=== PATIENT | female | born 1960 | race Caucasian/White ===

== ENCOUNTER 2016-08-09 15:25 | Inpatient (IN) | payer OTHER ==
--- NOTE | 2016-08-09 15:29 | PDOC ---
History of Present Illness - General History Source: Patient Exam Limitations: No Limitations - History of Present Illness Initial Comments: 08/09/16 15:53 The patient is a 55 year old female, with significant past medical history of COPD, who presents today complaining of chest pain, SOB, and cough since 3am this morning. The patient describes the pain as tightness that is exacerbated secondary to laying down flat or walking. She states that this chest pain does not feel similar to the chest discomfort she feels from the COPD. The patient states that she usually has a cough in the morning, however today the coughing has lingered throughout the day. Denies any recent cold. Denies fever, chills, nausea, vomiting. Denies abdominal pain. Allergies: none reported PCP: None Order Entry Administrator: Dr. Agustin Landon <Gabrielle Erickson - Last Filed: 08/09/16 21:10> <Fernanda Aleman - Last Filed: 08/09/16 21:27> - General Chief Complaint: Chest Pain Stated Complaint: sob,chest pain Time Seen by Provider: 08/09/16 15:28 Past History <Gabrielle Erickson - Last Filed: 08/09/16 21:10> - Past Medical History COPD: Yes - Psycho/Social/Smoking Cessation Hx Anxiety: No Suicidal Ideation: No Smoking Status: Yes Smoking History: Current every day smoker Years of Tobacco Use: 40 Number of Cigarettes Smoked Daily: 25 'Breaking Loose' booklet given: 07/18/13 Hx Alcohol Use: No Substance Use Type: None <Fernanda Aleman - Last Filed: 08/09/16 21:27> - Past Medical History Allergies/Adverse Reactions: Allergies Allergy/AdvReac Type Severity Reaction Status Date / Time No Known Allergies Allergy Verified 08/09/16 15:26 Home Medications: Ambulatory Orders Budesonide/Formeterol Fumarate [SYMBICORT 160/4.5mcg -] 1 inh PO BID 07/18/13 Tiotropium [place] [Spiriva] 1 inh PO DAILY 07/18/13 Aspirin Coated [Ecotrin -] 81 mg PO ONCE PRN 08/09/16 Review of Systems - Review of Systems Able to Perform ROS?: Yes Comments:: 08/09/16 15:54 GENERAL/CONSTITUTIONAL: No fever or chills. No weakness. HEAD, EYES, EARS, NOSE AND THROAT: No change in vision. No ear pain or discharge. No sore throat. CARDIOVASCULAR: Yes: chest pain, SOB. RESPIRATORY: Yes: cough. No wheezing, or hemoptysis. GASTROINTESTINAL: No nausea, vomiting, diarrhea or constipation. GENITOURINARY: No dysuria, frequency, or change in urination. MUSCULOSKELETAL: No joint or muscle swelling or pain. No neck or back pain. SKIN: No rash NEUROLOGIC: No headache, vertigo, loss of consciousness, or change in strength/ sensation. ENDOCRINE: No increased thirst. No abnormal weight change. HEMATOLOGIC/LYMPHATIC: No anemia, easy bleeding, or history of blood clots. ALLERGIC/IMMUNOLOGIC: No hives or skin allergy. <Gabrielle Erickson - Last Filed: 08/09/16 21:10> *Physical Exam - Vital Signs Last Vital Signs Temp Pulse Resp BP Pulse Ox 97.9 F 93 H 20 130/80 97 08/09/16 15:25 08/09/16 15:25 08/09/16 15:25 08/09/16 15:25 08/09/16 15:25 - Physical Exam Comments: 08/09/16 15:54 GENERAL: Awake, alert, and fully oriented, in no acute distress HEAD: No signs of trauma EYES: PERRLA, EOMI, sclera anicteric, conjunctiva clear ENT: Auricles normal inspection, hearing grossly normal, nares patent, oropharynx clear without exudates. Moist mucosa NECK: Normal ROM, supple, no lymphadenopathy, JVD, or masses LUNGS: Breath sounds equal, clear to auscultation bilaterally. No wheezes, and no crackles HEART: Regular rate and rhythm, normal S1 and S2, no murmurs, rubs or gallops ABDOMEN: Soft, nontender, normoactive bowel sounds. No guarding, no rebound. No masses EXTREMITIES: Normal range of motion, no edema. No clubbing or cyanosis. No cords, erythema, or tenderness NEUROLOGICAL: Cranial nerves II through XII grossly intact. Normal speech, normal gait SKIN: Warm, Dry, normal turgor, no rashes or lesions noted. <Gabrielle Erickson - Last Filed: 08/09/16 21:10> Procedures - Consent Consent obtained: Verbal, From Patient - Chest Tube Left Mid Axillary Line 5th ICS Indication: Pneumothorax Anesthesia: 1% Lidocaine Volume(ml): 5 Sterile Draping: Yes Sterile Technique: Yes Garcia of Air [place]: Yes Suction: Yes Tube Sutured to Skin: Yes Complications: No Post Procedure CXR: Yes <Fernanda Aleman - Last Filed: 08/09/16 21:27> Heart Score/ECG Review - ECG Impressions Comment:: EKG read 15:40- NSR 98 bpm, no acute ST/T changes <Fernanda Aleman - Last Filed: 08/09/16 21:27> ED Treatment Course - LABORATORY CBC & Chemistry Diagram: 08/09/16 15:54 08/09/16 15:54 - RADIOLOGY Radiograph Interpretation: 08/09/16 21:10 EXAM#: TYPE/EXAM: RESULT: [id number] RAD/CHEST X-RAY PORTABLE* Chest AP 1 view 08/09/2016, 16:08 Clinical information: chest pain, dyspnea A large approximately 75% left-sided pneumothorax is noted. There is no definite mediastinal displacement. Centrilobular emphysema and bilateral apical subpleural bullae identified on a chest CT exam of is fully difficult to appreciate on radiography. The heart, cydney and mediastinum demonstrate no obvious abnormality. Impression: Large left-sided pneumothorax. Centrilobular emphysema. Reported By: Wes Dougherty MD 08/09/162035 EXAM#: TYPE/EXAM: RESULT: [id number] RAD/CHEST X-RAY PORTABLE* Chest AP 1 view 08/09/2016, 18:01 Clinical information: status post chest tube insertion There has been interval insertion of a left-sided chest tube. A very large ipsilateral pneumothorax persists without obvious interval change. No definite mediastinal displacement. Centrilobular emphysema. Bilateral apical subpleural bullae identified on chest CT are difficult to appreciate on radiography. The heart, cydney and mediastinum demonstrate no obvious abnormality. Impression: Persistent very large left-sided pneumothorax. Reported By: Wes Dougherty MD 08/09/162043 EXAM#: TYPE/EXAM: RESULT: [id number] RAD/CHEST PA LAT Chest 2 views 08/09/2016, 18:23 Clinical information: chest tube placement In comparison to the previous exam there has been minimal to mild resolution of a very large left- sided pneumothorax. A left-sided chest tube is again seen in place. No pleural effusion. Centrilobular emphysema. Right apical subpleural bullae. The heart, cydney and mediastinum demonstrate no obvious abnormality. Impression: No definite interval change is identified. Very large left-sided pneumothorax. Left chest tube in place. Reported By: Wes Dougherty MD 08/09/162046 <Gabrielle Erickson - Last Filed: 08/09/16 21:10> - LABORATORY CBC & Chemistry Diagram: 08/09/16 15:54 08/09/16 15:54 <Fernanda Aleman - Last Filed: 08/09/16 21:27> Medical Decision Making - Medical Decision Making 08/09/16 18:30 Patient accepted to hospitalist service. Pigtail is in place. Initial chest x- rays were taken with stopcock in off position. It was switched to the on position, +bubbling in the pleuravac. Patient currently comfortable, denies pain. 08/09/16 19:01 Pt complaining of pain. Will give fentanyl 50mcg IV. <Fernanda Aleman - Last Filed: 08/09/16 21:27> *DC/Admit/Observation/Transfer - Attestations Scribe Attestion: 08/09/16 15:54 Documentation prepared by FRANKLYN Torrez, acting as medical director/head team physician for Fernanda Aleman MD. <Gabrielle Erickson - Last Filed: 08/09/16 21:10> - Discharge Dispostion Admit: Yes <Fernanda Aleman - Last Filed: 08/09/16 21:27> Diagnosis at time of Disposition: Pneumothorax Qualifiers: Pneumothorax type: spontaneous, primary Qualified Code(s): J93.11 - Primary spontaneous pneumothorax - Discharge Dispostion Condition at time of disposition: Stable
[2016-08-09 15:38] VITALS: BMI 20.9
[2016-08-09] MEDS ORDERED: IBUPROFEN 600 MG TABLET (FP) PO ONE ×2 (15:49→15:55)
[2016-08-09 16:32] LABS: ALBUMIN 3.9 g/dl (3.5-5.0); ALK PHOS 67 U/L (32-92); ANION GAP 7 (8-16); BILIRUBIN,TOTAL 0.3 mg/dl (0.2-1.0); CALCIUM 9.3 mg/dl (8.4-10.2); CO2 27 mmol/L (22-28); CREATININE 0.8 mg/dl (0.6-1.3); GLUCOSE,RANDOM 104 mg/dl (74-106); SGOT/AST 27 U/L (10-42); SGPT/ALT 19 U/L (10-40)
[2016-08-09 16:33] LABS: CPK(DFH) 143 IU/L (26-140)
[2016-08-09 16:43] LABS: BASOPHIL 0.6 % (0-2.0); EOSINOPHIL 1.4 % (0-4.5); MCH 29.4 pg (25.7-33.7); MCHC 33.3 g/dl (32.0-36.0); MEAN CELL VOLUME 88.2 fl (80-96); MEAN PLT VOLUME 8.1 fl (7.5-11.1); NEUTROPHILS 68.8 % (42.8-82.8); PLATELET COUNT 223 K/MM3 (134-434); WHITE BLOOD COUNT 7.3 K/mm3 (4.0-10.0)
[2016-08-09 16:54] LABS: INR 1.04 (0.82-1.09); PROTHROMBIN TIME (PATIENT) 11.6 SEC (10.2-13.0)
[2016-08-09 17:22] LABS: TROPONIN I (DFP) < 0.03 ng/ml (0.03-0.50)
[2016-08-09 17:24] LABS: CK MB 1.9 ng/ml (0.3-4.0)
[2016-08-09] MEDS ORDERED: morphine CARPU-JECT 2 MG/1 ML DISP.SYRIN IVPUSH ONE (21:01)
[2016-08-09] MEDS ORDERED: morphine CARPU-JECT 10 MG/1 ML DISP.SYRIN ONE (21:09)
--- NOTE | 2016-08-09 23:02 | PN ---
<Rom Herring - Last Filed: 08/09/16 23:02> Teaching Attending Note Name of Resident: Mel La ATTENDING PHYSICIAN STATEMENT I saw and evaluated the patient. I reviewed the resident's note and discussed the case with the resident. I agree with the resident's findings and plan as documented. SUBJECTIVE: OBJECTIVE: ASSESSMENT AND PLAN: <Karla Merrill - Last Filed: 08/09/16 23:58> Teaching Attending Note ATTENDING PHYSICIAN STATEMENT I saw and evaluated the patient. I reviewed the resident's note and discussed the case with the resident. I agree with the resident's findings and plan as documented. SUBJECTIVE: Patient is a 55 yo F with a PMHx of COPD who presents with left-sided chest pain and SOB since 3 am. The pain began spontaneously and did not improve with aspirin. Patient reports the pain radiates toward her left upper shoulder and back and has progressively gotten worse all day. She also notes her pain is exacerbated with movement. Patient states her COPD is well controlled. Patient has not received her flu shot this year. Allergies: NKDA Denies fever, chills, nausea, vomiting, diarrhea and abdominal pain. Surgical Hx: None Social Hx: Smoker: Chronic 6 cigarettes per day (former 2ppd), no drug use OBJECTIVE: Last Vital Signs Temp Pulse Resp BP Pulse Ox 97.7 F 76 16 120/77 100 08/09/16 20:30 08/09/16 20:30 08/09/16 20:30 08/09/16 20:30 08/09/16 20:30 GENERAL: Awake, alert, and fully oriented, in no acute distress. HEENT: Atraumatic. Moist mucosa. Normocephalic. No sinus tenderness. No LAD. NECK: No JVD. No thyroid masses. Supple. LUNGS: Left-sided pigtail catheter in left clavicular line. Decreased breath sounds in left lung base. No wheezing, rhonchi or rales. HEART: Regular rate and rhythm, normal S1 and S2, no murmurs, rubs or gallops, peripheral pulses normal and equal bilaterally. ABDOMEN: Soft, nontender, normoactive bowel sounds. No guarding, no rebound. No Masses. MUSCULOSKELETAL: No joint tenderness or erythema. No muscle tenderness. Normal muscle bulk and tone. EXTREMITIES: Normal inspection, No edema. No clubbing or cyanosis. Moves all extremities. NEUROLOGICAL: Normal speech, normal gait, no focal sensorimotor deficits. SKIN: Warm, dry, normal turgor, no rashes or lesions noted. CBCD WBC 7.3 K/mm3 (4.0-10.0) 08/09/16 15:54 RBC 4.40 M/mm3 (3.60-5.2) 08/09/16 15:54 Hgb 12.9 GM/dl (10.7-15.3) 08/09/16 15:54 Hct 38.9 % (32.4-45.2) 08/09/16 15:54 MCV 88.2 fl (80-96) 08/09/16 15:54 MCHC 33.3 g/dl (32.0-36.0) 08/09/16 15:54 RDW 13.0 % (11.6-15.6) 08/09/16 15:54 Plt Count 223 K/MM3 (134-434) 08/09/16 15:54 MPV 8.1 fl (7.5-11.1) 08/09/16 15:54 CMP Sodium 138 mmol/L (136-145) 08/09/16 15:54 Potassium 4.0 mmol/L (3.5-5.1) 08/09/16 15:54 Chloride 104 mmol/L (98-107) 08/09/16 15:54 Carbon Dioxide 27 mmol/L (22-28) 08/09/16 15:54 Anion Gap 7 (8-16) L 08/09/16 15:54 BUN 13 mg/dl (7-18) D 08/09/16 15:54 Creatinine 0.8 mg/dl (0.6-1.3) 08/09/16 15:54 Creat Clearance w eGFR > 60 (>60) 08/09/16 15:54 Calcium 9.3 mg/dl (8.4-10.2) 08/09/16 15:54 Total Bilirubin 0.3 mg/dl (0.2-1.0) D 08/09/16 15:54 AST 27 U/L (10-42) D 08/09/16 15:54 ALT 19 U/L (10-40) 08/09/16 15:54 Alkaline Phosphatase 67 U/L (32-92) 08/09/16 15:54 Total Protein 7.0 g/dl (6.4-8.3) 08/09/16 15:54 Albumin 3.9 g/dl (3.5-5.0) 08/09/16 15:54 CXR 2 Impression: Persistent, very large. Left-sided pneumothorax. CXR 3 Impression: No definite interval change is identified. Very large, left-sided pneumothorax. Left-sided chest tube placed. ASSESSMENT AND PLAN: Patient is a 55 yo F with a PMHx of COPD who presents with secondary spontaneous pneumothorax likely secondary to COPD and chronic smoking with 75% pneumothorax on left side as per CXR report. 1.) Secondary Spontaneous Pneumothorax -Clinically stable s/p catheter -Continue left pigtail with suction -Serial CXRs -Monitor vitals Q 4 hours -2 mg Morphine IV push 6 hours PRN if pain and/or dyspnea -Pulmonology follow-up in AM Dr. Landon DVT ppx -Low risk -SCDs Diet -Regular - Admit to [facility] Documentation prepared by Karla Merrill, acting as medical administrative specialist for Rom Herring M.D.
[2016-08-09] MEDS ORDERED: morphine CARPU-JECT 2 MG/1 ML DISP.SYRIN IVPUSH PRN (23:41)
[2016-08-09] MEDS ORDERED: ASPIRIN COATED 81 MG TABLET.EC PO PRN (23:43)
[2016-08-09] MEDS ORDERED: HEPARIN NA (PORCINE) 5,000 UNITS/ML 1ML VIAL SQ SCH (23:45)
--- NOTE | 2016-08-09 23:45 | HP ---
CHIEF COMPLAINT: Chest pain and SOB PCP: Dr. Landon. HISTORY OF PRESENT ILLNESS: 55 year old female presented to the ED (at [facility]) with the chief complaints of chest pain and SOB x 1day. A/c to the patient, she woke up at 3am with severe left sided chest pain, initially was 4/10 in intensity, sharp in quality, radiating towards her left shoulder and back, associated with shortness of breath. Chest pain and SOB progressively got worse to 10/10 in intensity, was persistent, increased on deep inspiration. This has never happened before. Denies cough, palpitation, abdominal pain, nausea or vomiting, headache, fever, chills, rigors or sweating. ER course was notable for: (1) NO leukocytosis, afebrile (2) CXR: Pneumothorax (3) Left sided chest tube placement Recent Travel: None PAST MEDICAL HISTORY: COPD PAST SURGICAL HISTORY: None Social History: Smoking: Current smoker, smokes 6cigs/day, e-cigs, used to smoke 2 packs/day Alcohol: Never took alcohol Drugs: No illicit drugs Family History: No h/o pneumothorax Allergies No Known Allergies Allergy (Verified 08/09/16 15:26) HOME MEDICATIONS: Home Medications Medication Instructions Recorded Budesonide/Formeterol Fumarate 1 inh PO BID 07/18/13 [SYMBICORT 160/4.5mcg -] Tiotropium [place] [Spiriva] 1 inh PO DAILY 07/18/13 Aspirin Coated [Ecotrin -] 81 mg PO ONCE PRN 08/09/16 REVIEW OF SYSTEMS CONSTITUTIONAL: Absent: fever, chills, diaphoresis, generalized weakness, malaise, loss of appetite, weight change HEENT: Absent: rhinorrhea, nasal congestion, throat pain, throat swelling, difficulty swallowing, mouth swelling, ear pain, eye pain, visual changes CARDIOVASCULAR: Present: chest pain Absent: syncope, palpitations, irregular heart rate, lightheadedness, peripheral edema RESPIRATORY: Present: shortness of breath Absent: cough, dyspnea with exertion, orthopnea, wheezing, stridor, hemoptysis GASTROINTESTINAL: Absent: abdominal pain, abdominal distension, nausea, vomiting, diarrhea, constipation, melena, hematochezia GENITOURINARY: Absent: dysuria, frequency, urgency, hesitancy, hematuria, flank pain, genital pain MUSCULOSKELETAL: Absent: myalgia, arthralgia, joint swelling, back pain, neck pain SKIN: Absent: rash, itching, pallor HEMATOLOGIC/IMMUNOLOGIC: Absent: easy bleeding, easy bruising, lymphadenopathy, frequent infections ENDOCRINE: Absent: unexplained weight gain, unexplained weight loss, heat intolerance, cold intolerance NEUROLOGIC: Absent: headache, focal weakness or paresthesias, dizziness, unsteady gait, seizure, mental status changes, bladder or bowel incontinence PSYCHIATRIC: Absent: anxiety, depression, suicidal or homicidal ideation, hallucinations. PHYSICAL EXAMINATION Vital Signs - 24 hr 08/09/16 08/09/16 08/09/16 15:25 16:00 17:28 Temperature 97.9 F Pulse Rate 93 H 76 Pulse Rate [ 77 Left] Respiratory 20 18 Rate Blood Pressure 130/80 Blood Pressure [Left Arm] Blood Pressure 127/81 [Right Arm] O2 Sat by Pulse 97 100 100 Oximetry (%) 08/09/16 08/09/16 08/09/16 18:08 19:18 20:30 Temperature 97.7 F Pulse Rate Pulse Rate [ 79 69 76 Left] Respiratory 20 18 16 Rate Blood Pressure Blood Pressure 120/77 [Left Arm] Blood Pressure 134/94 124/75 [Right Arm] O2 Sat by Pulse 100 100 100 Oximetry (%) GENERAL: Thinly built female sitting in bed uncomfortable, Awake, alert, and fully oriented, in no acute distress. HEAD: Normal with no signs of trauma. EYES: EOM intact, no pallor or icterus. EARS, NOSE, THROAT: Ears normal. Moist mucous membranes. NECK: Supple. LUNGS: Chest tube placed in 5th ICS @ axillary line, Breath sounds decreased on the left side,No wheezes, and no crackles. No accessory muscle use. HEART: Regular rate and rhythm, normal S1 and S2 without murmur, rub or gallop. ABDOMEN: Soft, nontender, not distended, normoactive bowel sounds, no guarding, no rebound, no masses. No hepatomegaly or splenomegaly. MUSCULOSKELETAL: Normal range of motion at all joints. No bony deformities or tenderness. No CVA tenderness. UPPER EXTREMITIES: 2+ pulses, warm, well-perfused. No cyanosis. No clubbing. Cap refill <2 seconds. No peripheral edema. LOWER EXTREMITIES: 2+ pulses, warm, well-perfused. No calf tenderness. No peripheral edema. NEUROLOGICAL: Cranial nerves II-XII intact. Normal speech. Gait not observed. PSYCHIATRIC: Cooperative. Good eye contact. Appropriate mood and affect. SKIN: Warm, dry, normal turgor, no rashes or lesions noted. Laboratory Results - last 24 hr 08/09/16 08/09/16 08/09/16 15:54 15:54 15:54 WBC 7.3 RBC 4.40 Hgb 12.9 Hct 38.9 MCV 88.2 MCHC 33.3 RDW 13.0 Plt Count 223 MPV 8.1 Neutrophils % 68.8 Lymphocytes % 22.2 D Monocytes % 7.0 Eosinophils % 1.4 Basophils % 0.6 INR Sodium 138 Potassium 4.0 Chloride 104 Carbon Dioxide 27 Anion Gap 7 L BUN 13 D Creatinine 0.8 Creat Clearance w eGFR > 60 Random Glucose 104 Calcium 9.3 Total Bilirubin 0.3 D AST 27 D ALT 19 Alkaline Phosphatase 67 Creatine Kinase 143 H CK-MB (CK-2) 1.9 Troponin I < 0.03 L Total Protein 7.0 Albumin 3.9 08/09/16 16:34 WBC RBC Hgb Hct MCV MCHC RDW Plt Count MPV Neutrophils % Lymphocytes % Monocytes % Eosinophils % Basophils % INR 1.04 Sodium Potassium Chloride Carbon Dioxide Anion Gap BUN Creatinine Creat Clearance w eGFR Random Glucose Calcium Total Bilirubin AST ALT Alkaline Phosphatase Creatine Kinase CK-MB (CK-2) Troponin I Total Protein Albumin CXR 2 Impression: Persistent, very large. Left-sided pneumothorax. CXR 3 s/p chest tube Impression: No definite interval change is identified. Very large, left-sided pneumothorax. Left-sided chest tube placed. ASSESSMENT/PLAN: 55 year old female presented to the ED (at [facility]) with PMHx of COPD with the chief complaints of chest pain and SOB x 1day. # Spontaneous secondary Pneumothorax Patient presented with severe left sided chest pain with SOB since morning. On arrival, patient was afebrile, hemodynamically stable with normal sat. CXR showed left sided pneumothorax Admitted now in Med-Surg @ [facility] Patients chest pain seems to persist. Ordered IV Morphine 2mg Q6H PRN Incentive Spirometry every hr as tolerated Chest tube placed in suction CXR ordered for 6am Monitor new symptoms # COPD-Not in exacerbation Never been hospitalized for exacerbation Continue Spiriva and Symbicort Smoking cessation Oxygen PRN # FEN Not on IV fluids Electrolytes to be repeated Regular diet # Prophylaxis For DVT- On SCD's For GI- Not indicated # Code Status- Full Code # Dispo: Admitted in Med-surg. Illness, Investigation and plan of care explained to the patient. She verbalized understanding. Case seen and discussed with Dr. Herring. Visit type - Emergency Visit Emergency Visit: Yes ED Registration Date: 08/09/16 Care time: The patient presented to the Emergency Department on the above date and was hospitalized for further evaluation of their emergent condition. - New Patient This patient is new to me today: Yes Date on this admission: 08/09/16 - Critical Care Critical Care patient: No
[2016-08-10] MEDS: morphine CARPU-JECT 2 MG/1 ML DISP.SYRIN IVPUSH PRN ×2 (00:53→06:08)
[2016-08-10] MEDS: BUDESONIDE/FORMETEROL FUMARATE 160/4.5 mcg INHALER IH SCH ×3 (00:56→20:59)
[2016-08-10 08:50] LABS: BASOPHIL 0.8 % (0-2.0); EOSINOPHIL 2.7 % (0-4.5); MCHC 33.5 g/dl (32.0-36.0); MEAN CELL VOLUME 89.6 fl (80-96); MEAN PLT VOLUME 8.4 fl (7.5-11.1); NEUTROPHILS 57.7 % (42.8-82.8); PLATELET COUNT 175 K/MM3 (134-434); RDW 13.3 % (11.6-15.6); WHITE BLOOD COUNT 4.9 K/mm3 (4.0-10.0)
[2016-08-10 09:25] LABS: ALBUMIN 3.2 g/dl (3.4-5.0); ANION GAP 8 (8-16); CALCIUM 8.4 mg/dL (8.5-10.1); CO2 28 mmol/L (21-32); GLUCOSE,RANDOM 75 mg/dL (74-106); MAGNESIUM 2.2 mg/dL (1.8-2.4); PHOSPHOROUS 4.2 mg/dL (2.5-4.9); SGOT/AST 20 U/L (15-37)
[2016-08-10 09:27] LABS: ALK PHOS 70 U/L (45-117); BILIRUBIN,TOTAL 0.3 mg/dL (0.2-1.0); CREATININE 0.7 mg/dL (0.55-1.02); SGPT/ALT 19 U/L (12-78); TOT PROT 6.4 g/dl (6.4-8.2)
[2016-08-10] MEDS ORDERED: PT OWN MED DRAWER 7, Y5N ONE (10:37)
[2016-08-10] MEDS: ACLIDINIUM BROMIDE 400 MCG/INH AERO.POWD IH SCH ×2 (10:39→20:59)
--- NOTE | 2016-08-10 10:40 | EKG ---
Test Reason : Blood Pressure : / mmHG Vent. Rate : 098 BPM Atrial Rate : 098 BPM P-R Int : 136 ms QRS Dur : 076 ms QT Int : 352 ms P-R-T Axes : 084 084 020 degrees QTc Int : 449 ms SINUS RHYTHM POSSIBLE LEFT ATRIAL ENLARGEMENT NO PREVIOUS ECGS AVAILABLE Confirmed by KAMILLE BELTRAN MD ([id number]) on 08/10/2016 10:40:41 AM Referred By: MD RUDOLPH Confirmed By:KAMILLE BELTRAN MD
[2016-08-10] MEDS ORDERED: morphine CARPU-JECT 4 MG/1 ML DISP.SYRIN IVPUSH PRN (10:43)
--- NOTE | 2016-08-10 10:59 | PN ---
Teaching Attending Note Name of Resident: Adriano Cooper ATTENDING PHYSICIAN STATEMENT I saw and evaluated the patient. I reviewed the resident's note and discussed the case with the resident. I agree with the resident's findings and plan as documented. SUBJECTIVE:states she has pain at tube insertion site that is worse on movement. states pain is not alleviated with pain medication. never had episode in the past. denies CP, SOB,cough, fever, chills, N/V/C/D. states she has been smoking e-cigarettes more lately but has not cut down on smoking. OBJECTIVE: Last Vital Signs Temp Pulse Resp BP Pulse Ox 98.4 F 60 20 109/70 98 08/10/16 10:00 08/10/16 10:00 08/10/16 10:00 08/10/16 10:00 08/10/16 05:00 General NAD CV S1 S2 RRR no murmur/rub/gallop Lungs CTA B/L no wheezing/rales/rhonchi L posterior chest tube in place, minimal dried blood surrounding insertion site, no erythema. ASSESSMENT AND PLAN: 55yo F wtih PMH COPD presented to the ER and was admitted for further evaluation of their emergent condition 1. Secondary PTX- likely due to smoking hx vs COPD. unaware if this is more pronounced with e-cigarettes. daily CXR. awaiting todays image. monitor oxygen levels. increase morphine to 4mg Q4H for improved pain control. pulmonary on board 2. Continuous nicotine depedence- offer nicotine patch 3. COPD- cont inhalers 4. DVT ppx- EAM
--- NOTE | 2016-08-10 11:12 | CON.PULM ---
Consult Consult Specialty:: PULMONARY Referred by:: YARY Reason for Consultation:: PTX - History of Present Illness Chief Complaint: SOB/CP History of Present Illness: The patient is a 55 year old female, with significant past medical history of COPD, who presented complaining of chest pain, SOB, and cough since am of admission. The patient describes the pain as tightness that is exacerbated secondary to lying flat or walking. She states that this chest pain does not feel similar to the chest discomfort she feels from the COPD. The patient states that she usually has a cough in the morning, however today the coughing has lingered throughout the day.Denies any recent cold. Denies fever, chills, nausea, vomiting. Denies abdominal pain. No h/o previous PTX. She is an active smoker. 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 No: O2 Dependent Gastrointestinal: No: Ascites Hepatobiliary: No: Cirrhosis Renal/: No: Renal Failure Reproductive: Yes: Postmenopausal Heme/Onc: No: Anemia Infectious Disease: No: HIV Psych: No: Addictions Musculoskeletal: No: Bursitis Rheumatology: No: Fibromyalgia ENT: No: Allergic Rhinitis Endocrine: No: Diabetes Mellitus - Alcohol/Substance Use Hx Alcohol Use: No - Smoking History Smoking history: Current every day smoker Have you smoked in the past 12 months: Yes Aproximately how many cigarettes per day: 25 - Social History Place of : [facility] History of Recent Travel: No Home Medications - Allergies Allergies/Adverse Reactions: Allergies Allergy/AdvReac Type Severity Reaction Status Date / Time No Known Allergies Allergy Verified 08/09/16 15:26 - Home Medications Home Medications: Ambulatory Orders Budesonide/Formeterol Fumarate [SYMBICORT 160/4.5mcg -] 1 inh PO BID 07/18/13 Tiotropium [place] [Spiriva] 1 inh PO DAILY 07/18/13 Aspirin Coated [Ecotrin -] 81 mg PO ONCE PRN 08/09/16 Family Disease History - Family Disease History Family History: Unremarkable Review of Systems - Review of Systems Constitutional: denies: Fever Eyes: denies: Blind Spots HENT: denies: Difficult Swallowing Neck: denies: Decreased ROM Cardiovascular: reports: Chest Pain Respiratory: reports: Cough, Exercise Intolerance, SOB on Exertion. denies: Hemoptysis, Wheezing Gastrointestinal: denies: Abdominal Pain Genitourinary: denies: Burning Breasts: reports: No Symptoms Reported Musculoskeletal: reports: No Symptoms Neurological: reports: No Symptoms Endocrine: reports: No Symptoms Physical Exam Vital Sings: Vital Signs Temperature 98.4 F 08/10/16 10:00 Pulse Rate 60 08/10/16 10:00 Respiratory Rate 20 08/10/16 10:00 Blood Pressure 109/70 08/10/16 10:00 O2 Sat by Pulse Oximetry (%) 98 08/10/16 05:00 Constitutional: Yes: Calm Eyes: Yes: EOM Intact HENT: Yes: Normocephalic Neck: Yes: Trachea Midline Cardiovascular: Yes: Regular Rate and Rhythm Respiratory: Yes: Other (LEFT PIG TAIL CATHETER IN PLACE/BREATH SOUNDS ARE PRESENT ON LEFT) Gastrointestinal: Yes: WNL Extremities: Yes: WNL Edema: No Labs: CBC, BMP 08/10/16 06:30 08/10/16 06:30 REST REVIEWED Imaging - Results Chest X-ray: Image Reviewed Problem List - Problems (1) Pneumothorax Code(s): J93.9 - PNEUMOTHORAX, UNSPECIFIED Qualifiers: Pneumothorax type: spontaneous, primary Qualified Code(s): J93.11 - Primary spontaneous pneumothorax (2) COPD - Chronic obstructive lung disease Code(s): J44.9 - CHRONIC OBSTRUCTIVE PULMONARY DISEASE, UNSPECIFIED (3) Chest pain Code(s): R07.9 - CHEST PAIN, UNSPECIFIED Assessment/Plan SPONTANEOUS PNEUMOTHORAX IN AN ACTIVE SMOKER WITH COPD PIG TAIL CATHETER PLACED WITHOUT RESOLUTION OF PTX INITIALLY AM CXR IS PENDING ,I SUSPECT THE PTX IS IMPROVED BASED ON CLINICAL EXAM. WILL ASK T-SURG TO CONSULT CONTINUE O2/BRONCHODILATORS FOR NOW WILL FOLLOW Tammy JONES MD
[2016-08-10] MEDS: IBUPROFEN 400 MG TABLET (FP) PO PRN (11:21)
--- NOTE | 2016-08-10 13:26 | PN ---
Physical Exam: SUBJECTIVE: Patient seen and examined at bedside. Pt feels better today. No SOB , CP, palpitations, abd pain. She has pain at chest tube insertion site and would like some ibuprofen. Denies any trauma to chest, falls, bumps, or any inciting factors. Has recently been smoking more. OBJECTIVE: Vital Signs Temperature 98.4 F 08/10/16 10:00 Pulse Rate 60 08/10/16 10:00 Respiratory Rate 20 08/10/16 10:00 Blood Pressure 109/70 08/10/16 10:00 O2 Sat by Pulse Oximetry (%) 98 08/10/16 05:00 GENERAL: The patient is awake, alert, and fully oriented, in no acute distress. HEAD: Normal with no signs of trauma. EYES: PERRL, extraocular movements intact, sclera anicteric, conjunctiva clear. No ptosis. ENT: Ears normal, nares patent, oropharynx clear without exudates, moist mucous membranes. NECK: Trachea midline, full range of motion, supple. LUNGS: Decreased breath sounds L upper lung field. No crackles. L sided chest tube in place, minimal drainage. HEART: Regular rate and rhythm, S1, S2 without murmur, rub or gallop. ABDOMEN: Soft, nontender, nondistended, normoactive bowel sounds, no guarding, no rebound, no hepatosplenomegaly, no masses. EXTREMITIES: 2+ pulses, warm, well-perfused, no edema. NEUROLOGICAL: Normal speech, gait not observed. PSYCH: Normal mood, normal affect. SKIN: Warm, dry, normal turgor, no rashes or lesions noted Laboratory Results - last 24 hr 08/10/16 08/10/16 06:30 06:30 WBC 4.9 RBC 3.86 Hgb 11.6 Hct 34.6 MCV 89.6 MCHC 33.5 RDW 13.3 Plt Count 175 MPV 8.4 Neutrophils % 57.7 Lymphocytes % 30.2 Monocytes % 8.6 Eosinophils % 2.7 Basophils % 0.8 Sodium 141 Potassium 4.2 Chloride 105 Carbon Dioxide 28 Anion Gap 8 BUN 10 Creatinine 0.7 Creat Clearance w eGFR > 60 Random Glucose 75 Calcium 8.4 L Phosphorus 4.2 Magnesium 2.2 Total Bilirubin 0.3 AST 20 ALT 19 Alkaline Phosphatase 70 Total Protein 6.4 Albumin 3.2 L Active Medications Generic Name Dose Route Start Last Admin Trade Name Freq PRN Reason Stop Dose Admin Aclidinium [place] 1 puff 08/10/16 10:00 08/10/16 10:39 Tudorza - IH 1 puff BID SOFIA Administration Budesonide/Formoterol Fumarate 1 puff 08/09/16 23:45 08/10/16 10:40 Symbicort 160/4.5mcg - IH 1 puff BID SOFIA Administration Ibuprofen 400 mg 08/10/16 10:42 08/10/16 11:21 Motrin - PO 400 mg Q6H PRN Administration PAIN Morphine Sulfate 4 mg 08/10/16 10:43 Morphine Injection - IVPUSH Q4H PRN FOR CHEST PAIN ASSESSMENT/PLAN: 55 y/o F w/PMH of COPD, current smoker presented to [facility] w/o c/o sudden chest pain and SOB since the night before coming to ER. Found to have L sided pneumothorax and had chest tube placed and now admitted for pneumothorax. -Spontaneous secondary pneumothorax most likely due to smoking history, copd/ emphysema. -L sided chest tube in place with suction -minimal drainage -pulm on board -Dr. Bernard - thoracic surgery consulted -CXR this AM shows adequate expansion of left lung -CXR in AM -pt informed to alert staff if she has any worsening SOB, chest pain, difficulty breathing -pain control with morphine 4mg iv q4h prn; ibuprofen 400 mg po q6h prn -c/w incentive spirometry use -COPD -c/w spiriva, symbicort -smoking cessation -FEN -not on fluids -monitor lytes -regular diet -DVT ppx -scds -Dispo: -monitor on floors Problem List - Problems (1) Pneumothorax Code(s): J93.9 - PNEUMOTHORAX, UNSPECIFIED Qualifiers: Pneumothorax type: spontaneous, primary Qualified Code(s): J93.11 - Primary spontaneous pneumothorax (2) COPD - Chronic obstructive lung disease Code(s): J44.9 - CHRONIC OBSTRUCTIVE PULMONARY DISEASE, UNSPECIFIED (3) Chest pain Code(s): R07.9 - CHEST PAIN, UNSPECIFIED Visit type - Emergency Visit Emergency Visit: Yes ED Registration Date: 08/09/16 Care time: The patient presented to the Emergency Department on the above date and was hospitalized for further evaluation of their emergent condition. - New Patient This patient is new to me today: Yes Date on this admission: 08/10/16 - Critical Care Critical Care patient: No
--- NOTE | 2016-08-10 17:40 | CONSULT ---
Consult - text type - Consultation Consultation Note: Thoracic Surgery Consultation (Brief--Full consult to follow). CXR's reviewed showing a well-expanded lung ~24 hours after chest tube placement. In AM, will assess chest tube for air-leak and possibly change to water seal.
[2016-08-11] MEDS: IBUPROFEN 400 MG TABLET (FP) PO PRN ×2 (01:33→10:35)
--- NOTE | 2016-08-11 08:17 | MSN ---
Progress Note (SOAP) - Subjective Chief Complaint: CP and SOB History of Present Illness: NHI overnight. Pt states she feels well and breathing is improved compared to yesterday. Pt does c/o headache, which she thinks is secondary to nicotine withdrawal. Pt requests to have nicotine patch. Denies SOB/CP/palpitations/ abdominal pain/fevers/chills. Received Motrin @0100 this morning and Morphine 4mg IV injection @2000 last night. Pt states there is no pain at the operative site and will not request Morphine anymore. - Current Medications Current Medications: Active Medications Aclidinium [place] (Tudorza -) 1 puff IH BID [facility] Last Admin: 08/10/16 20:59 Dose: 1 puff Budesonide/Formoterol Fumarate (Symbicort 160/4.5mcg -) 1 puff IH BID [facility] Last Admin: 08/10/16 20:59 Dose: 1 puff Ibuprofen (Motrin -) 400 mg PO Q6H PRN PRN Reason: PAIN Last Admin: 08/11/16 01:33 Dose: 400 mg Morphine Sulfate (Morphine Injection -) 4 mg IVPUSH Q4H PRN PRN Reason: FOR CHEST PAIN Last Admin: 08/10/16 20:58 Dose: 4 mg Nicotine (Nicoderm Patch -) 14 mg TD DAILY [facility] - Objective Vital Signs: Vital Signs Temperature 97.5 F L 08/11/16 06:43 Pulse Rate 60 08/11/16 06:43 Respiratory Rate 20 08/11/16 06:43 Blood Pressure 98/64 08/11/16 06:43 O2 Sat by Pulse Oximetry (%) 97 08/10/16 09:00 Constitutional: Yes: No Distress, Calm, Thin Eyes: Yes: WNL, Conjunctiva Clear, EOM Intact, PERRL HENT: Yes: WNL, Atraumatic, Normocephalic. No: Epistaxis, Hoarseness, Nasal Congestion, Rhinnorhea Neck: Yes: WNL, Trachea Midline Cardiovascular: Yes: WNL, Regular Rate and Rhythm, S1, S2. No: JVD Respiratory: Yes: Regular, CTA Bilaterally, Diminished (Diminished breath sounds at L apex have improved since yesterday.), On Nasal O2 (2 L NC). No: Accessory Muscle Use, Bradypnea, SOB, Tachypnea Gastrointestinal: Yes: WNL, Normal Bowel Sounds, Soft Musculoskeletal: Yes: WNL Extremities: Yes: WNL Edema: No Wound/Incision: Yes: Clean/Dry, Dressing Dry and Intact. No: Draining, Reddened , Bleeding Neurological: Yes: WNL, Alert, Oriented, Cran Nerves II-XII Intact ...Motor Strength: Yes: WNL Psychiatric: Yes: WNL, Oriented Labs Lab Results: CBC, BMP 08/10/16 06:30 08/10/16 06:30 Imaging - Results Chest X-ray: Report Reviewed, Image Reviewed (08/11/16 CXR shows persistent small L apical PTX. Possible R small apical PTX or bullous changes) Cat Scan: Report Reviewed, Image Reviewed (CT scan of the chest revealed R apical bullae, L PTX of ~5%, L sided basilar atelectasis, no lung nodules identified) Problem List - Problems (1) COPD - Chronic obstructive lung disease Code(s): J44.9 - CHRONIC OBSTRUCTIVE PULMONARY DISEASE, UNSPECIFIED (2) Pneumothorax Code(s): J93.9 - PNEUMOTHORAX, UNSPECIFIED Qualifiers: Pneumothorax type: spontaneous, primary Qualified Code(s): J93.11 - Primary spontaneous pneumothorax (3) Nicotine dependence Code(s): F17.200 - NICOTINE DEPENDENCE, UNSPECIFIED, UNCOMPLICATED Assessment/Plan 55 yo F with a PMHx of COPD presented to [place] ED on 08/09/16 c/o CP and SOB x1 day. CXR revealed L apical PTX and chest tube was placed in the ED. 1. L apical PTX -L sided chest tube in place with suction, minimal drainage with little to no increase since yesterday -clinically improving -pulmonary and thoracic surgery consult appreciated -CXR 08/11/16 revealed small persistent L apical PTX. F/U CXR in AM -CT scan 08/11/16 revealed L PTX of ~5%, L sided basilar atelectasis, R sided apical bullae, no lung nodules -plan to switch chest tube to water seal from suction -monitor clinical status once taken off suction and repeat CXR within 12-24 hrs from putting chest tube on water seal -c/w incentive spirometry 2. COPD -c/w symbicort and spiriva -school counsellor on smoking sensation 3. Headache secondary to nicotine dependence -Nicoderm patch 14mg TD daily applied 4. Pain management -Ibuprofen 400mg PO PRN. Last dose 08/11/16 @1000 -Morphine 4mg IV Push Q4H PRN. Last dose 08/10/16 @1999 5. DVT ppx -scds 6. FEN -no IVF -monitor electrolytes -regular diet 7. Dispo -monitor on floors Wes Weber, MS3
--- NOTE | 2016-08-11 08:34 | PN ---
Physical Exam: SUBJECTIVE: Patient seen and examined at bedside. Pt feels well today and denies any SOB, CP, difficulty breathing. Pain at tube insertion site is less compared to yesterday. Pt has MARKS and states its most likely from not smoking and would like a nicotine patch. Pt denies N/V/F/C, light headedness, dizziness. OBJECTIVE: Vital Signs Temperature 97.5 F L 08/11/16 06:43 Pulse Rate 60 08/11/16 06:43 Respiratory Rate 20 08/11/16 06:43 Blood Pressure 98/64 08/11/16 06:43 O2 Sat by Pulse Oximetry (%) 97 08/10/16 09:00 GENERAL: The patient is awake, alert, and fully oriented, in no acute distress. HEAD: Normal with no signs of trauma. EYES: PERRL, extraocular movements intact, sclera anicteric, conjunctiva clear. No ptosis. ENT: Ears normal, nares patent, oropharynx clear without exudates, moist mucous membranes. NECK: Trachea midline, full range of motion, supple. LUNGS: CTA B/L, equal breath sounds. Improved compared to yesterday. No crackles. L sided chest tube in place, minimal drainage. HEART: Regular rate and rhythm, S1, S2 without murmur, rub or gallop. ABDOMEN: Soft, nontender, nondistended, normoactive bowel sounds, no guarding, no rebound, no hepatosplenomegaly, no masses. EXTREMITIES: 2+ pulses, warm, well-perfused, no edema. NEUROLOGICAL: Normal speech, gait not observed. PSYCH: Normal mood, normal affect. SKIN: Warm, dry, normal turgor, no rashes or lesions noted Laboratory Results - last 24 hr 08/10/16 08/10/16 06:30 06:30 WBC 4.9 RBC 3.86 Hgb 11.6 Hct 34.6 MCV 89.6 MCHC 33.5 RDW 13.3 Plt Count 175 MPV 8.4 Neutrophils % 57.7 Lymphocytes % 30.2 Monocytes % 8.6 Eosinophils % 2.7 Basophils % 0.8 Sodium 141 Potassium 4.2 Chloride 105 Carbon Dioxide 28 Anion Gap 8 BUN 10 Creatinine 0.7 Creat Clearance w eGFR > 60 Random Glucose 75 Calcium 8.4 L Phosphorus 4.2 Magnesium 2.2 Total Bilirubin 0.3 AST 20 ALT 19 Alkaline Phosphatase 70 Total Protein 6.4 Albumin 3.2 L Imaging: CXR 08/11/16: persistent L apical pneumothorax with left base chest tube and blunting of the left angle. There is a lucency seen at the right apex which could represent a small pneumothorax though bullous changes must be considered. Active Medications Generic Name Dose Route Start Last Admin Trade Name Freq PRN Reason Stop Dose Admin Aclidinium [place] 1 puff 08/10/16 10:00 08/10/16 20:59 Tudorza - IH 1 puff BID SOFIA Administration Budesonide/Formoterol Fumarate 1 puff 08/09/16 23:45 08/10/16 20:59 Symbicort 160/4.5mcg - IH 1 puff BID SOFIA Administration Ibuprofen 400 mg 08/10/16 10:42 08/11/16 01:33 Motrin - PO 400 mg Q6H PRN Administration PAIN Morphine Sulfate 4 mg 08/10/16 10:43 08/10/16 20:58 Morphine Injection - IVPUSH 4 mg Q4H PRN Administration FOR CHEST PAIN Nicotine 14 mg 08/11/16 10:00 Nicoderm Patch - TD DAILY SOFIA ASSESSMENT/PLAN: 55 y/o F w/PMH of COPD, current smoker presented to [facility] w/o c/o sudden chest pain and SOB since the night before coming to ER. Found to have L sided pneumothorax and had chest tube placed and now admitted for pneumothorax. -Spontaneous secondary pneumothorax most likely due to smoking history, copd/ emphysema. -L sided chest tube in place with suction -minimal drainage -pulm on board -Dr. Joana Marcus t-surgery will reassess chest tube today and plan for possible wet seal. -CXR this AM shows persistent small L apical ptx. R apex possible small ptx vs bullous changes. -CT chest 08/2015 shows biapical bulla, unlikely to be R apex ptx at this time. -CXR in AM -pt informed to alert staff if she has any worsening SOB, chest pain, difficulty breathing -pain control with morphine 4mg iv q4h prn; ibuprofen 400 mg po q6h prn -c/w incentive spirometry use -COPD -c/w spiriva, symbicort -smoking cessation -Current smoker -Nicoderm patch 14 mg TD qd -Headache secondary to nicotine dependence -Nicoderm patch 14 mg TD qd -FEN -not on fluids -monitor lytes -regular diet -DVT ppx -scds -Dispo: -monitor on floors Problem List - Problems (1) Pneumothorax Code(s): J93.9 - PNEUMOTHORAX, UNSPECIFIED Qualifiers: Pneumothorax type: spontaneous, primary Qualified Code(s): J93.11 - Primary spontaneous pneumothorax (2) COPD - Chronic obstructive lung disease Code(s): J44.9 - CHRONIC OBSTRUCTIVE PULMONARY DISEASE, UNSPECIFIED (3) Chest pain Code(s): R07.9 - CHEST PAIN, UNSPECIFIED (4) Nicotine dependence Code(s): F17.200 - NICOTINE DEPENDENCE, UNSPECIFIED, UNCOMPLICATED (5) Headache Code(s): R51 - HEADACHE Visit type - Emergency Visit Emergency Visit: Yes ED Registration Date: 08/09/16 Care time: The patient presented to the Emergency Department on the above date and was hospitalized for further evaluation of their emergent condition. - New Patient This patient is new to me today: No - Critical Care Critical Care patient: No
[2016-08-11] MEDS: ACLIDINIUM BROMIDE 400 MCG/INH AERO.POWD IH SCH ×2 (09:00→21:04)
[2016-08-11] MEDS: BUDESONIDE/FORMETEROL FUMARATE 160/4.5 mcg INHALER IH SCH ×2 (09:41→21:04)
[2016-08-11] MEDS: NICOTINE 14 MG/24 HOURS TOPICAL PATCH TD SCH (09:44)
--- NOTE | 2016-08-11 11:30 | PN ---
Teaching Attending Note Name of Resident: Adriano Cooper ATTENDING PHYSICIAN STATEMENT I saw and evaluated the patient. I reviewed the resident's note and discussed the case with the resident. I agree with the resident's findings and plan as documented. SUBJECTIVE:states pain at chest tube site has improved. denies SOB, cough, fever , chills, N/V/C/D OBJECTIVE: Last Vital Signs Temp Pulse Resp BP Pulse Ox 98.6 F 66 20 130/72 97 08/11/16 10:00 08/11/16 10:00 08/11/16 10:00 08/11/16 10:08/10/16 09:00 General NAD CV S1 S2 RRR no murmur/rub/gallop Lungs CTA B/L no wheezing/rales/rhonchi L posterior chest tube in place, with mild tenderness, no erythema or bleeding ASSESSMENT AND PLAN: 55yo F wtih PMH COPD presented to the ER and was admitted for further evaluation of their emergent condition 1. Secondary PTX- likely due to smoking hx vs COPD. hx of apical blebs on CT chest from last year. CT chest done to evaluate for PTX and possibility of LN. shows mostly resolved L apical PTX. would agree with water seal of Chest tube and monitor if lungs remain re-expanded. daily CXR. pain control. 2. Continuous nicotine depedence- nicotine patch 3. COPD- cont inhalers 4. DVT ppx- EAM
--- NOTE | 2016-08-11 16:11 | PN ---
Progress Note, Physician History of Present Illness: PULMONARY ALERT,OOB-CHAIR,-SOB,PIGTAIL CATH ON LEFT . CHEST CT 5% RESIDUAL LEFT SIDED PTX - Current Medication List Current Medications: Active Medications Aclidinium [place] (Tudorza -) 1 puff IH BID [facility] Last Admin: 08/11/16 09:00 Dose: 1 puff Budesonide/Formoterol Fumarate (Symbicort 160/4.5mcg -) 1 puff IH BID [facility] Last Admin: 08/11/16 09:41 Dose: 1 puff Ibuprofen (Motrin -) 400 mg PO Q6H PRN PRN Reason: PAIN Last Admin: 08/11/16 10:35 Dose: 400 mg Morphine Sulfate (Morphine Injection -) 4 mg IVPUSH Q4H PRN PRN Reason: FOR CHEST PAIN Last Admin: 08/10/16 20:58 Dose: 4 mg Nicotine (Nicoderm Patch -) 14 mg TD DAILY [facility] Last Admin: 08/11/16 09:44 Dose: 14 mg - Objective Vital Signs: Vital Signs Temperature 98.3 F 08/11/16 13:54 Pulse Rate 79 08/11/16 13:54 Respiratory Rate 20 08/11/16 13:54 Blood Pressure 105/57 08/11/16 13:54 O2 Sat by Pulse Oximetry (%) 100 08/11/16 11:54 Constitutional: Yes: Calm, Thin Eyes: Yes: WNL HENT: Yes: WNL Neck: Yes: WNL Cardiovascular: Yes: Regular Rate and Rhythm, S1, S2 Respiratory: Yes: CTA Bilaterally Gastrointestinal: Yes: WNL Extremities: Yes: WNL Edema: No Labs: CBC, BMP - ....Imaging Cat Scan: Report Reviewed, Image Reviewed Assessment/Plan Problem List - Problems (1) Pneumothorax Code(s): J93.9 - PNEUMOTHORAX, UNSPECIFIED Qualifiers: Pneumothorax type: spontaneous, primary Qualified Code(s): J93.11 - Primary spontaneous pneumothorax (2) COPD - Chronic obstructive lung disease Code(s): J44.9 - CHRONIC OBSTRUCTIVE PULMONARY DISEASE, UNSPECIFIED (3) Chest pain Code(s): R07.9 - CHEST PAIN, UNSPECIFIED Assessment/Plan SECONDARY SPONTANEOUS PNEUMOTHORAX IN AN ACTIVE SMOKER WITH COPD PIG TAIL CATHETER THORACIC F/U AM CXR CONTINUE O2 BRONCHODILATORS DR DOLAN
--- NOTE | 2016-08-12 08:59 | PN ---
Progress Note (short form) - Note Progress Note: currently asymptomatic. pain is controlled with pain medications. denies CP, SOb ,fever, chills, cough, N/v/C?D Current Medications Generic Name Dose Route Start Last Admin Trade Name Freq PRN Reason Stop Dose Admin Aclidinium [place] 1 puff 08/10/16 10:00 08/11/16 21:04 Tudorza - IH 1 puff BID SOFIA Administration Budesonide/Formoterol Fumarate 1 puff 08/09/16 23:45 08/11/16 21:04 Symbicort 160/4.5mcg - IH 1 puff BID SOFIA Administration Ibuprofen 400 mg 08/10/16 10:42 08/11/16 10:35 Motrin - PO 400 mg Q6H PRN Administration PAIN Morphine Sulfate 4 mg 08/10/16 10:43 08/10/16 20:58 Morphine Injection - IVPUSH 4 mg Q4H PRN Administration FOR CHEST PAIN Nicotine 14 mg 08/11/16 10:00 08/11/16 09:44 Nicoderm Patch - TD 14 mg DAILY SOFIA Administration Last Vital Signs Temp Pulse Resp BP Pulse Ox 98.3 F 71 20 119/59 100 08/12/16 06:00 08/12/16 06:00 08/12/16 06:00 08/12/16 06:00 08/11/16 21:00 General NAD CV S1 S2 RRR no murmur/rub/gallop Lungs CTA B/L no wheezing/rales/rhonchi L posterior chest tube in place, ASSESSMENT AND PLAN: 55yo F wtih PMH COPD presented to the ER and was admitted for further evaluation of their emergent condition 1. Secondary PTX- likely due to smoking hx vs COPD. CT chest showing 5% apical PTX. remains asymptomatic. awaiting CXR for this morning. chest tube currently on water seal. plan is to clamp and repeat XR. if remains stable will pull chest tube today. pt will need repeat CXR in 12-24H. pain control. 2. Continuous nicotine depedence- nicotine patch 3. COPD- cont inhalers 4. DVT ppx- EAM Visit type - Emergency Visit Emergency Visit: Yes ED Registration Date: 08/09/16 Care time: The patient presented to the Emergency Department on the above date and was hospitalized for further evaluation of their emergent condition. - New Patient This patient is new to me today: No - Critical Care Critical Care patient: No - Discharge Referral Referred to [facility] No
[2016-08-12] MEDS ORDERED: PT OWN MED DRAWER 7, Y5N ONE (09:09)
[2016-08-12] MEDS: NICOTINE 14 MG/24 HOURS TOPICAL PATCH TD SCH (09:13)
[2016-08-12] MEDS: BUDESONIDE/FORMETEROL FUMARATE 160/4.5 mcg INHALER IH SCH (09:13)
[2016-08-12] MEDS: ACLIDINIUM BROMIDE 400 MCG/INH AERO.POWD IH SCH (09:13)
--- NOTE | 2016-08-12 09:44 | PN ---
Progress Note (short form) - Note Progress Note: PULMONARY Denies shortness of breath or chest pain. CXR unchanged with chest tube on waterseal with small left apical pneumothorax. Last Vital Signs Temp Pulse Resp BP Pulse Ox 98.3 F 71 20 119/59 100 08/12/16 06:00 08/12/16 06:00 08/12/16 06:00 08/12/16 06:00 08/11/16 21:00 Gen: NAD at rest Heart: RRR Lung: equal breath sounds Abd: soft, nontender Ext: no edema CBC, BMP 08/10/16 06:30 08/10/16 06:30 Active Medications Aclidinium [place] (Tudorza -) 1 puff IH BID [facility] Last Admin: 08/12/16 09:13 Dose: 1 puff Budesonide/Formoterol Fumarate (Symbicort 160/4.5mcg -) 1 puff IH BID [facility] Last Admin: 08/12/16 09:13 Dose: 1 puff Ibuprofen (Motrin -) 400 mg PO Q6H PRN PRN Reason: PAIN Last Admin: 08/11/16 10:35 Dose: 400 mg Morphine Sulfate (Morphine Injection -) 4 mg IVPUSH Q4H PRN PRN Reason: FOR CHEST PAIN Last Admin: 08/10/16 20:58 Dose: 4 mg Nicotine (Nicoderm Patch -) 14 mg TD DAILY [facility] Last Admin: 08/12/16 09:13 Dose: 14 mg A/P Secondary Spontaneous Pneumothorax s/p Pigtail Catheter placement COPD Emphysema Smoker - will clamp chest tube - repeat CXR at 11AM - if unchanged, will d/c chest tube with close outpt follow up - O2 - inhaled bronchodilators - smoking cessation - DVT prophylaxis
[2016-08-12 10:24] VITALS: BP 105/63; PULSE 84; TEMP 98
--- NOTE | 2016-08-12 13:20 | PN ---
Progress Note (short form) - Note Progress Note: PULMONARY CXR with chest tube clamped unchanged. chest tube removed. Can discharge home, advised no lifting, running, strenuous activity. She will get another CXR in AM as outpt. If any chest discomfort, shortness of breath, instructed to come back to ER immediately. Agustin Landon MD
--- NOTE | 2016-08-13 14:04 | DS ---
Physical Exam: SUBJECTIVE: OBJECTIVE: Vital Signs Temperature 98 F 08/12/16 10:00 Pulse Rate 84 08/12/16 10:00 Respiratory Rate 18 08/12/16 10:00 Blood Pressure 105/63 08/12/16 10:00 O2 Sat by Pulse Oximetry (%) 100 08/12/16 09:00 PHYSICAL EXAM GENERAL: The patient is awake, alert, and fully oriented, in no acute distress. HEAD: Normal with no signs of trauma. EYES: PERRL, extraocular movements intact, sclera anicteric, conjunctiva clear. ENT: Ears normal, nares patent, oropharynx clear without exudates, moist mucous membranes. NECK: Trachea midline, full range of motion, supple. LUNGS: Breath sounds equal, clear to auscultation bilaterally, no wheezes, no crackles, no accessory muscle use. HEART: Regular rate and rhythm, S1, S2 without murmur, rub or gallop. ABDOMEN: Soft, nontender, nondistended, normoactive bowel sounds, no guarding, no rebound, no hepatosplenomegaly, no masses. EXTREMITIES: 2+ pulses, warm, well-perfused, no edema. NEUROLOGICAL: Cranial nerves II through XII grossly intact. Normal speech, gait not observed. PSYCH: Normal mood, normal affect. SKIN: Warm, dry, normal turgor, no rashes or lesions noted. LABS HOSPITAL COURSE: Date of Admission:08/09/16 Date of Discharge: 08/13/16 55 y/o F current smoker, w/ PMH of COPD presented to [facility] ER with c/o CP and SOB for 1 day which started suddenly overnight. Pain was initially 4/10 on left side of chest, sharp, radiated towards left shoulder and back. Pain progressed to 10/10 and aggravated with deep inspiration. First time these symptoms have occurred according to patient. Trop neg x1. CXR showed large pneumothorax on left side. Pt denied any trauma or falls or any inciting factors. Pt had chest tube placed in ER. Pt diagnosed with spontaneous secondary pneumothorax likely due to COPD and smoking history. Pt admitted to floors. Chest tube placed to suction with minimal drainage. Pt remained hemodynamically stable from admission through discharge. Daily CXRs were ordered which showed resolution of pneumothorax on L. CT chest was done as there was a possible apical R pneumothorax but B/L apical bullae were seen with no evidence of pneumothorax in right. Pt was seen by pulm and thoracic surgery. Chest tube was removed before discharge and told to follow up with PCP, pulm, and get CXR in AM to monitor pneumothorax. Pt also advised to quit smoking. Motrin for pain control advised. Minutes to complete discharge: 38 Discharge Summary Reason For Visit: PNEUMOTHORAX Condition: Improved - Instructions Diet, Activity, Other Instructions: Take motrin as needed for pain. Resume aspirin tomorrow. It is advised that you quit smoking as it is related to the cause of the pneumothorax. nicotine patches have been sent to the pharmacy to aid in your quitting. refer to handout Follow up with chest XR tomorrow. Follow up with your primary care doctor in 1 week. If you do not have one information on one in the area has been provided. Follow up with pulmonary in 2 weeks IF you develop shortness of breath or chest pain return to the ER immediately Referrals: Yosvany Gonzales MD [Staff Physician] - Agustin Landon MD, MD [Staff Physician] - Disposition: HOME - Home Medications Comprehensive Discharge Medication List: Ambulatory Orders Budesonide/Formeterol Fumarate [SYMBICORT 160/4.5mcg -] 1 inh PO BID 07/18/13 Tiotropium [place] [Spiriva] 1 inh PO DAILY 07/18/13 Aspirin Coated [Ecotrin -] 81 mg PO ONCE PRN 08/09/16 Nicotine Patch [Nicoderm Patch -] 14 mg TD DAILY #30 patch 08/12/16 Problem List - Problems (1) Pneumothorax Code(s): J93.9 - PNEUMOTHORAX, UNSPECIFIED Qualifiers: Pneumothorax type: spontaneous, primary Qualified Code(s): J93.11 - Primary spontaneous pneumothorax (2) COPD - Chronic obstructive lung disease Code(s): J44.9 - CHRONIC OBSTRUCTIVE PULMONARY DISEASE, UNSPECIFIED (3) Chest pain Code(s): R07.9 - CHEST PAIN, UNSPECIFIED (4) Nicotine dependence Code(s): F17.200 - NICOTINE DEPENDENCE, UNSPECIFIED, UNCOMPLICATED (5) Headache Code(s): R51 - HEADACHE This patient is new to me today: No Emergency Visit: Yes ED Registration Date: 08/09/16 Care time: The patient presented to the Emergency Department on the above date and was hospitalized for further evaluation of their emergent condition. Critical Care patient: No - Discharge Referral Referred to [facility] No
== END 2016-08-12 15:09 | disposition home or self-care (01) | DRG 94 ==
LOC: FER 15:25 → J8W 22:30
PROVIDERS: ADMIT Internal Medicine; ATTEND Internal Medicine
PROC: 0W9B30Z Drainage of Left Pleural Cavity with Drainage Device, Percutaneous Approach (ICD-10-PCS; principal; 2016-08-09)
PROC: 0WP8X0Z Removal of Drainage Device from Chest Wall, External Approach (ICD-10-PCS; 2016-08-12)
DX: J93.11 Primary spontaneous pneumothorax (principal); J44.9 Chronic obstructive pulmonary disease, unspecified; F17.210 Nicotine dependence, cigarettes, uncomplicated; R07.9 Chest pain, unspecified; R51 Headache
CPT/HCPCS: 36415; 71010-TC; 71020-TC; 71250-TC; 80053; 82550; 82553; 83735; 84100; 84484; 85025; 85610; 93005; 99285-25